=== PATIENT | male | born 1975 | race African-American/Black ===

== ENCOUNTER 2021-10-09 12:15 | Outpatient (CLI) | payer OTHER ==
--- NOTE | 2021-10-09 14:12 | Cat Scan Report ---
CT ABDOMEN AND PELVIS WITHOUT CONTRAST INDICATION / CLINICAL INFORMATION: R31.29. Per the patient there was blood in urine for several weeks but stopped bleeding after he stopped drinking coffee TECHNIQUE: Axial CT images were obtained through the abdomen and pelvis without IV contrast. Sagittal and taylor l reformatted images. All CT scans at this location are performed using CT dose reduction for ALARA b y means of automated exposure control. COMPARISON: None available. FINDINGS: LOWER CHEST: There is minor linear scarring or segmental atelectasis in the right middle lobe and deepa gula. The remaining visualized lung bases are clear. Heart size is normal. LIVER: No significant abnormality. GALLBLADDER: No significant abnormality. BILE DUCTS: No significant abnormality. PANCREAS: No significant abnormality. SPLEEN: No significant abnormality. ADRENALS: No significant abnormality. RIGHT KIDNEY and URETER: No significant abnormality. LEFT KIDNEY and URETER: No significant abnormality. STOMACH and SMALL BOWEL: No significant abnormality. COLON: No significant abnormality. APPENDIX: No significant abnormality. PERITONEUM: No free fluid. No free air. No fluid collection. LYMPH NODES: No significant adenopathy. AORTA and ARTERIES: No significant abnormality. IVC and VEINS: No significant abnormality. URINARY BLADDER: The bladder is poorly distended but no gross abnormality is detected. REPRODUCTIVE ORGANS: The prostate gland is normal size. ADDITIONAL FINDINGS: None. SKELETAL SYSTEM: No significant abnormality. IMPRESSION: No significant abnormality. No clear explanation for hematuria on noncontrast CT. Signer Name: Tani Post Jr, MD Signed: 10/09/2021 2:08 PM Workstation Name: [id number]
== END 2021-10-09 12:16 | disposition home or self-care (01) ==
LOC: CT 12:15
PROVIDERS: ATTEND Urology
DX: R31.29 Other microscopic hematuria (principal)
CPT/HCPCS: 74176

== ENCOUNTER 2021-11-06 07:04 | Day surgery (SDC) | payer OTHER ==
--- NOTE | 2021-11-06 07:43 | Anesthesia Consultation ---
Anesthesia Consult and Med Hx Date of service: 11/06/21 - Airway Anesthetic Teeth Evaluation: Good ROM Head & Neck: Adequate Mental/Hyoid Distance: Adequate Mallampati Class: Class II Intubation Access Assessment: Good - Pulmonary Exam CTA: Yes - Cardiac Exam Cardiac Exam: RRR - Pre-Operative Health Status ASA Pre-Surgery Classification: ASA2 Proposed Anesthetic Plan: General - Pulmonary Hx Smoking: No Hx Sleep Apnea: No (GLENN PRE SCREEN LOW RISK) - Cardiovascular System Hx Hypertension: Yes (X 5 YRS) - Endocrine Hx Liver Disease: Yes (HEP B) - Hematic Hx Anemia: No - Other Systems Hx Alcohol Use: Yes (2 BEERS PER DAY) Hx Cancer: No
--- NOTE | 2021-11-06 07:44 | Anesthesia Day of Surgery ---
Anesthesia Day of Surgery - Day of Surgery Patient Examined: Yes Patient H&P Reviewed: Yes Patient is NPO: Yes
[2021-11-06] MEDS ORDERED: MIDAZOLAM 2 MG/2 ML INJ IV NR (08:00)
[2021-11-06] MEDS ORDERED: ceFAZolin/STERILE WATER 2 GM/20 ML SYRINGE IV NR (08:00)
[2021-11-06] MEDS ORDERED: ceFAZolin/Water 2 GM/20 ML 2 GM/20 ML SYRINGE IV ONE (08:03)
[2021-11-06] MEDS ORDERED: LACTATED RINGERS 1,000 ML IV SCH (08:30)
[2021-11-06] MEDS ORDERED: propofoL 200 MG/20 ML VIAL IV ONE (09:10)
[2021-11-06] MEDS ORDERED: fentaNYL 100 MCG/2 ML INJ ONE (09:10)
[2021-11-06] MEDS ORDERED: LIDOCAINE MPF (2%) 20 MG/1 ML VIAL 5 ML ONE (09:10)
[2021-11-06] MEDS ORDERED: WATER FOR IRRIG STERILE 2000 ML IR ONE (10:38)
[2021-11-06] MEDS ORDERED: KETOROLAC 30 MG/1 ML INJ ONE (10:44)
--- NOTE | 2021-11-06 10:55 | Post Operative Note ---
Date of procedure: 11/06/21 Pre-op diagnosis: irritative sx Post-op diagnosis: same Findings: normal Procedure: cysto biopsy Anesthesia: GETA Surgeon: FAWAD ASHLEY Estimated blood loss: none Pathology: list (bladder) Specimen disposition: to lab Condition: stable Disposition: PACU
--- NOTE | 2021-11-06 10:56 | Discharge Summary ---
Short Stay Discharge Plan Activity: other (no straining ) Weight Bearing Status: Full Weight Bearing Diet: regular Follow up with: PRIMARY CARE, [Primary Care Provider] - 7 Days FAWAD ASHLEY MD [Staff Physician] - 7 Days
--- NOTE | 2021-11-06 11:08 | Operative Report ---
DATE OF SURGERY: 11/06/2021 PREOPERATIVE DIAGNOSIS: Irritative voiding symptoms. POSTOPERATIVE DIAGNOSIS: Irritative voiding symptoms. PROCEDURES: Cystoscopy, biopsy. SURGEON: Sven Smith MD ANESTHESIA: General. FINDINGS: This is a gentleman who presented with irritative voiding symptoms and questionable microscopic hematuria. He never had gross hematuria now presents for cystoscopy. DESCRIPTION OF PROCEDURE: The patient was brought to the operating room and placed on the operating table. Following induction of anesthesia, placed in lithotomy position, prepped and draped in usual sterile fashion. Cystourethroscopy showed a normal urethra and normal bladder, no trabeculation. We were going to do a retrograde, but the machine broke. The patient was fully asleep. We felt that the risk moving the patient under anesthesia to another room was higher. We can always get a CT urogram. Random biopsy was done. Bladder was perfectly normal. He really had no upper tract symptoms. No gross hematuria. The patient tolerated the procedure well. The machine was referred to get fixed. Brought to recovery room in stable condition. TID: [id number] RECEIPT: [id number] JOSIAS/CASEY
--- NOTE | 2021-11-06 17:06 | Post Anesthesia Evaluation ---
- Post Anesthesia Evaluation Patient Participated: Yes Airway Patent: Yes Stable Respiratory Function: Yes Nausea/Vomiting: No Temp > 96.8F: Yes Pain Manageable: Yes Adequeate Hydration: Yes Anesthesia Complications: No Block Receding Appropriately: Not Applicable Patient on Ventilator: No
[2021-11-06 20:24] VITALS: BP 118/83
== END 2021-11-06 12:05 | disposition home or self-care (01) ==
LOC: OR 07:04
PROVIDERS: ATTEND Urology
DX: R39.89 Other symptoms and signs involving the genitourinary system (principal); N32.89 Other specified disorders of bladder; H40.9 Unspecified glaucoma; I10 Essential (primary) hypertension; Z72.89 Other problems related to lifestyle; Z79.899 Other long term (current) drug therapy; Z98.49 Cataract extraction status, unspecified eye; Z98.890 Other specified postprocedural states
CPT/HCPCS: 52204; 88112; 88305; C1758; J0690; J1885; J2704; J3010; J7120